=== PATIENT | male | born 1970 | race Caucasian/White ===

== ENCOUNTER → 2022-06-07 | Outpatient (CLI) | payer OTHER ==
[2022-06-07 22:54] LABS: BUN/Creat Ratio 15.78 Ratio (12.00-20.00); Blood Urea Nitrogen 14.2 mg/dL (9.0-27.0); Calcium 9.1 mg/dL (8.7-10.3); Non-African American GFR(CKD) 99.2 (60.0-200.0); Potassium 3.9 mmol/L (3.5-5.5)
[2022-06-07 23:01] LABS: Basophils # (A) 0.03 X 10*3/uL (0.00-0.10); Basophils % (A) 0.4 %; Eosinophils # (A) 0.22 X 10*3/uL (0.04-0.35); Eosinophils % (A) 2.9 %; HGB 15.1 g/dL (13.0-17.0); Immature Grans, Automated 1.1 %; Lymphocytes # (A) 2.14 X 10*3/uL (0.90-5.00); Lymphocytes % (A) 28.2 %; MCH 28.8 pg (27.0-32.0); MCHC 35.1 g/dL (32.0-37.0); MCV 82.1 fL (80.0-97.0); Mean Platelet Volume 9.4 fL (9.5-12.2); Monocytes # (A) 0.63 X 10*3/uL (0.20-1.00); Monocytes % (A) 8.3 %; NRBC Per 100 WBC 0 /100 WBCS (0.0-0.0); Neutrophils % (A) 59.1 %; Platelet Count 282 X 10*3/uL (140-440); RBC 5.24 X 10*6/uL (4.40-5.60); RDW 12.6 % (11.5-14.5)
[2022-06-07 23:26] LABS: Appearance,Urine Clear (Clear); Bilirubin,Urine Negative (Negative); Blood,Urine Negative (Negative); Color,Urine Yellow (Yellow); Ketones,Urine Negative (Negative); Nitrite,Urine Negative (Negative); PH, Urine 5.5 (5.0-8.0); Specific Gravity,Urine 1.018 (1.001-1.030); Urobilinogen,Urine 0.2 (0.2,1.0)
== END | disposition home or self-care (01) ==
LOC: LABPAT 14:56
PROVIDERS: ATTEND Urology
DX: Z01.812 Encounter for preprocedural laboratory examination (principal); N20.0 Calculus of kidney
CPT/HCPCS: 80048; 81003; 85025; 87086

== ENCOUNTER 2022-06-14 05:59 | Day surgery (SDC) | payer OTHER ==
[2022-06-09 14:24] VITALS: BMI 38.3
[2022-06-14] MEDS ORDERED: LIDOCAINE 1% (10MG/ML) FOR IV START INTRADERMA PRN (06:08)
[2022-06-14] MEDS ORDERED: ONDANSETRON 4 MG/2 ML VIAL IVP ONE (06:08)
[2022-06-14] MEDS ORDERED: LACTATED RINGERS 1,000 ML IV SCH (06:08)
[2022-06-14] MEDS ORDERED: DEXAMETHASONE SOD PHOSPHATE 4 MG/ML 1 ML VIAL IV ONE (06:08)
[2022-06-14] MEDS ORDERED: MIDAZOLAM 2 MG/2 ML VIAL IV PRN (06:08)
--- NOTE | 2022-06-14 06:39 | XR ---
EXAMINATION TYPE: XR KUB DATE OF EXAM: 06/14/2022 COMPARISON: NONE HISTORY: Preop surgery TECHNIQUE: 2 views supine FINDINGS: There are multiple calculi over both kidneys and measure up to 8 mm. Most of the calculi ar e less than 5 mm. Bowel gas pattern is not acute. IMPRESSION: Numerous bilateral renal calculi. The largest calculus is in the lower pole right kidney.
[2022-06-14 06:45] VITALS: TEMP 97.6
[2022-06-14] MEDS ORDERED: HYDROmorphone 0.5 MG/0.5 ML SYRINGE IVP PRN (07:00)
[2022-06-14] MEDS ORDERED: IOPAMIDOL-300 50ML BTL MISCELLANE ONE (07:37)
--- NOTE | 2022-06-14 07:41 | P.HPIHPCON ---
History of Present Illness H&P Date: 06/14/22 Chief Complaint: Bilateral renal calculi This is a 51-year-old male with history of bilateral renal stones, he is symptomatically from his stone. On the right side he had greater than 7 stones. The largest measuring 8mm. On the left he had multiple stones, all smaller salome n 5 mm. Option of observation, versus ureteroscopy with holmium laser versus ESWL was discussed with him in detail. Risk and benefit of each approach were discussed. He agreed to proceed with a bilateral ureteroscopy with holmium laser. Discussed with him risk which includes but not limited to bleeding, infection, injury to the ureter Consent for Procedure: I have explained the operation/procedure to the patient, including the risks, benefits, side effects, alternative therapies (including not receiving the proposed treatment or service), the likelihood of the patient achieving his/her goals, and potential recuperation problems for the procedure/sedation/analgesia, as well as any blood products, if indicated. I also explained to the patient the risks, benefits and side effects of the alternatives, as well as the risks related to not receiving the proposed procedure, care, treatment, or services. Past Medical History Past Medical History: GERD/Reflux, Hypertension, Rheumatoid Arthritis (RA) Additional Past Medical History / Comment(s): kidney stones, lower back pain, states ankles bone on bone. History of Any Multi-Drug Resistant Organisms: None Reported Additional Past Surgical History / Comment(s): hammer toe, heel spurs, kidney stones removed. Past Anesthesia/Blood Transfusion Reactions: No Reported Reaction Past Psychological History: No Psychological Hx Reported Smoking Status: Former smoker Past Alcohol Use History: None Reported Additional Past Alcohol Use History / Comment(s): quit smoking 15 yrs ago, hx of 1-2 ppd Past Drug Use History: None Reported - Past Family History Mother Family Medical History: No Reported History Medications and Allergies Home Medications Medication Instructions Recorded Confirmed Type Celecoxib [CeleBREX] 200 mg PO BID 06/09/22 06/09/22 History Omeprazole 20 mg PO HS 06/09/22 06/14/22 History Testosterone [Androgel 1.62%] 1 pump TRANSDERM DAILY 06/09/22 06/14/22 History amLODIPine 10 mg PO DAILY 06/09/22 06/14/22 History atenoloL [Tenormin] 100 mg PO HS 06/09/22 06/14/22 History predniSONE [Deltasone] 20 mg PO DIRECTED PRN 06/09/22 06/14/22 History Allergies Allergy/AdvReac Type Severity Reaction Status Date / Time No Known Allergies Allergy Verified 06/14/22 06:39 Surgical - Exam Vital Signs Temp Pulse Resp BP Pulse Ox 97.6 F 68 18 153/74 98 06/14/22 06:40 06/14/22 06:40 06/14/22 06:40 06/14/22 06:40 06/14/22 06:40 - General no distress, moderate pain Assessment and Plan Assessment: OR for bilateral ureteroscopy, holmium laser lithotripsy, stone basketing and possible stent insertion
[2022-06-14] MEDS ORDERED: LACTATED RINGERS 1,000 ML IV ONE (09:20)
[2022-06-14] MEDS ORDERED: SUCCINYLCHOLINE CHLORIDE 200 MG/10 ML VIAL IV ONE (09:30)
[2022-06-14] MEDS ORDERED: ROCURONIUM 10 MG/ML (5 ML VIAL) IV ONE (09:30)
[2022-06-14] MEDS ORDERED: LIDOCAINE 2% INJ 20 MG/ML (2 ML VIAL) ONE (09:30)
[2022-06-14] MEDS ORDERED: fentaNYL (PF) 50 MCG/ML 2 ML AMP ONE (09:30)
[2022-06-14] MEDS ORDERED: GLYCOPYRROLATE 0.2 MG/ML 2 ML VIAL ONE (09:30)
[2022-06-14] MEDS ORDERED: NEOSTIGMINE 1 MG/ML 10 ML VIAL ONE (09:30)
[2022-06-14] MEDS ORDERED: PROPOFOL 10 MG/ML 20 ML VIAL IV ONE (09:30)
[2022-06-14] MEDS ORDERED: MIDAZOLAM 2 MG/2 ML VIAL ONE (09:30)
--- NOTE | 2022-06-14 09:36 | FL ---
EXAMINATION TYPE: FL guidance operating room DATE OF EXAM: 06/14/2022 HISTORY: Fluoroscopy time 50 seconds of fluoroscopy provided. IMPRESSION: 1. Fluoroscopy time.
--- NOTE | 2022-06-14 09:53 | P.OP ---
Date of Procedure: 06/14/22 Preoperative Diagnosis: Bilateral renal stones Postoperative Diagnosis: Same Procedure(s) Performed: Cystoscopy, bilateral ureteroscopy, holmium laser lithotripsy, stone basketing and stent insertion Implants: 6-[place] by 26 cm stent bilaterally left on a string Anesthesia: RUPAL Surgeon: Stone Chang Estimated Blood Loss (ml): 10 Pathology: other (bilateral renal stone) Condition: stable Disposition: PACU Indications for Procedure: This is a 51-year-old male with history of bilateral renal stones, he is symptomatically from his stone. On the right side he had greater than 7 stones. The largest measuring 8mm. On the left he had multiple stones, all smaller than 5 mm. Option of observation, versus ureteroscopy with holmium laser versus ESWL was discussed with him in detail. Risk and benefit of each approach were discussed. He agreed to proceed with a bilateral ureteroscopy with holmium laser. Discussed with him risk which includes but not limited to bleeding, infection, injury to the ureter Operative Findings: Multiple Bilateral renal stones, Description of Procedure: Patient brought to the operating room, general anesthesia was induced. He was prepped and draped in sterile fashion and placed in a dorsal lithotomy position. Cystoscopy fitted with a 21-[place] sheath was inserted per urethra, cystoscopy was performed which showed no abnormality within the bladder. Attention was then carried to the right ureteral orifice which was intubated with a sensor wire. Next the scope was removed with the wire in place next a 1113 [place] access sheath was placed over the wire under fluoroscopy into the proximal ureter. Next a flexible ureteroscope was inserted through the access sheath, renoscopy was performed showed multiple stones throughout the kidney the largest of which was in the lower pole. Using the holmium laser the stones were dusted. Sizable fragments were removed using the stone basket. Repeat renoscopy showed no additional stones within the kidney or injury to the kidney. Pullback ureteroscopy was performed which showed no injury to the ureter or any ureteral fragments. As the ureteroscope was withdrawn a sensor wire was advanced through. Next a ureteral stent was passed over the wire, the proximal curl was visualized on fluoroscopy and the distal curl was visualized using the scope. The stent was left on a string. At this time attention was then carried to the left ureteral orifice which was intubated with a sensor wire. Next under fluoroscopy 1113 [place] access sheath was passed over the wire, into the proximal ureter. A flexible ureteroscope was inserted through the access sheath, renoscopy was performed which showed 3 stones within the kidney. Using the holmium laser the stones were dusted, sizable fragments were removed using the stone basket. Repeat renoscopy showed no sizable stones within the kidney or injury to the kidney. Pullback ureteroscopy was performed which showed no injury to the ureter or any ureteral stones. As the ureteroscope was withdrawn aa sensor wire was advanced through. Next a ureteral stent was passed over the wire, the proximal curl was visualized on fluoroscopy and the distal curl was visualized using the cystoscope. The bladder was emptied and the end of the case. Both stents were left on a string and taped to the patient penis. Patient tolerated the procedure well was taken to recovery in stable condition
[2022-06-14 10:52] VITALS: BP 142/86; PULSE 62; RESP 14
== END 2022-06-14 11:21 | disposition home or self-care (01) ==
LOC: OR 05:59
PROVIDERS: ATTEND Urology
DX: N20.0 Calculus of kidney (principal); K21.9 Gastro-esophageal reflux disease without esophagitis; I10 Essential (primary) hypertension; M06.9 Rheumatoid arthritis, unspecified; Z98.890 Other specified postprocedural states; Z87.891 Personal history of nicotine dependence; Z79.899 Other long term (current) drug therapy; Z79.1 Long term (current) use of non-steroidal anti-inflammatories (NSAID)
CPT/HCPCS: 82365; 74018; 52356; C2625; C1758 ×4; C1894; C1769 ×3; J2250; J0330; J1100; J2710; J0690; J2405; J3010; J2704; J1170; J2001